=== PATIENT | male | born 1985 | race Caucasian/White ===

== ENCOUNTER → 2017-06-16 | Outpatient (CLI) | payer OTHER ==
--- NOTE | 2017-06-16 12:44 | XR ---
Lumbar spine HISTORY: Sciatica 3 views of the lumbar spine correlated to prior exam 10/15/2014, MRI 12/18/2014 Lumbar vertebral bodies show stable height, alignment, and bone mineralization. Disc spaces are uncha nged. IMPRESSION: Stable exam, mild degenerative disc disease
== END | disposition home or self-care (01) ==
LOC: RADXRMAIN 10:09
PROVIDERS: ATTEND Family Medicine
DX: M51.36 Other intervertebral disc degeneration, lumbar region (principal)
CPT/HCPCS: 72100

== ENCOUNTER 2018-12-20 22:18 | Emergency (ER) | payer OTHER ==
--- NOTE | 2018-12-20 22:48 | ED ---
Headache HPI - General Chief Complaint: Headache Stated Complaint: Headache Time Seen by Provider: 12/20/18 22:24 Source: patient, RN notes reviewed Mode of arrival: ambulatory Limitations: no limitations - History of Present Illness Initial Comments: 33-year-old male presents emergency Department chief complaint of headache. Patient had some intermittent headaches though he states he suffered with his for several years. Patient states that he was diagnosed with care malformation but states he had no surgery any procedures other than injections because it's very mild. Patient states that he had some ringing in his left ear and a headache which concerned him. Patient states she days ago he had blurred vision but it was temporary and states he is always had issues with this 71 had an injury to his left eye. Patient has a focal weakness no current URI symptoms no fever no chills no neck pain or neck stiffness. Patient states she says pres sure in the back of his head which is chronic. - Related Data Home Medications Medication Instructions Recorded Confirmed No Known Home Medications 12/20/18 12/20/18 Allergies Allergy/AdvReac Type Severity Reaction Status Date / Time No Known Allergies Allergy Verified 12/20/18 23:11 Review of Systems ROS Statement: Those systems with pertinent positive or pertinent negative responses have been documented in the HPI. ROS Other: All systems not noted in ROS Statement are negative. 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 Absent: scleral icterus, conjunctival injection, periorbital swelling ENT exam: Present: normal exam, normal oropharynx, mucous membranes moist, TM's normal bilaterally, normal external ear exam Neck exam: Present: normal inspection, full ROM. Absent: tenderness, meningismus, lymphadenopathy Respiratory exam: Present: normal lung sounds bilaterally. Absent: respiratory distress, wheezes, rales, rhonchi, stridor Cardiovascular Exam: Present: regular rate, normal rhythm, normal heart sounds. Absent: systolic murmur, diastolic murmur, rubs, gallop, clicks GI/Abdominal exam: Present: soft, normal bowel sounds. Absent: distended, tenderness, guarding, rebound, rigid Neurological exam: Present: alert, oriented X3, CN II-XII intact, reflexes normal, other (Finger to nose intact bilaterally without overshooting). Absent: motor sensory deficit Skin exam: Present: warm, dry, intact, normal color. Absent: rash Course Vital Signs 12/20/18 22:19 Temperature 98.4 F Pulse Rate 95 Respiratory 18 Rate Blood Pressure 131/83 O2 Sat by Pulse 100 Oximetry Medical Decision Making - Medical Decision Making 33-year-old male presented for intermittent headache and other vague symptoms. Patient is currently symptom-free. Patient was just concerned with his history care malformation. CT was obtained which shows evidence of colliod cyst in the third ventricle. Patient is neurologically intact and will follow-up with PCP to referred to a neurosurgeon. Return parameters were discussed. Disposition Clinical Impression: Intermittent headache, Colloid cyst of third ventricle Disposition: HOME SELF-CARE Condition: Stable Instructions (If sedation given, give patient instructions): Acute Headache (ED) Additional Instructions: Please return to the Emergency Department if symptoms worsen or any other concerns. Is patient prescribed a controlled substance at d/c from ED?: No Referrals: Ronni Parikh MD [Primary Care Provider] - 1-2 days
--- NOTE | 2018-12-20 23:28 | CT ---
EXAM: CT Head Without Intravenous Contrast CLINICAL HISTORY: RT ear pain, headache, blurred vision ITS.REASON CT Reason: pain TECHNIQUE: Axial computed tomography images of the head/brain without intravenous contrast. CTDI is 49.1 mGy and DLP is 1121.4 mGy-cm. This CT exam was performed using one or more of the following dose reduction techniques: automated exposure control, adjustment of the mA and/or kV according to patient size, and/or use of iterative reconstruction technique. COMPARISON: No relevant prior studies available. FINDINGS: Brain: A 7 mm hyperdense lesion in the region of the third ventricle, suggestive of colloid cyst. No midline shift. No acute cortical infarct. There is downward extension of the cerebellar tonsils measuring approximately 5-6 mm. Ventricles: Slightly larger right lateral ventricle compared to left. Bones/joints: No acute fracture. Soft tissues: Unremarkable. Sinuses: Minimal sinus disease. Mastoid air cells: Unremarkable as visualized. IMPRESSION: 1. A 7 mm hyperdense lesion in the region of the third ventricle, suggestive of colloid cyst. 2. Cerebellar tonsillar ectopia.
[2018-12-20 23:52] VITALS: BP 109/76; PULSE 72; RESP 19; TEMP 97.7
== END 2018-12-20 23:50 | disposition home or self-care (01) ==
LOC: EC 22:18
DX: G93.0 Cerebral cysts (principal); R51 Headache; H53.8 Other visual disturbances; R53.1 Weakness; Q07.00 Arnold-Chiari syndrome without spina bifida or hydrocephalus; F17.200 Nicotine dependence, unspecified, uncomplicated
CPT/HCPCS: 70450; 99284

== ENCOUNTER 2019-10-03 18:11 | Emergency (ER) | payer OTHER ==
[2019-10-03 18:56] VITALS: TEMP 97.4
[2019-10-03] MEDS ORDERED: SODIUM CHLORIDE 0.9% 1,000 ML IV STA (19:31)
[2019-10-03] MEDS ORDERED: SODIUM CHLORIDE 0.9% 500 ML 500 ML IV STA (19:31)
[2019-10-03] MEDS ORDERED: HYDROmorphone 0.5 MG/0.5 ML SYRINGE IVP STA (19:31)
[2019-10-03] MEDS ORDERED: ONDANSETRON 4 MG/2 ML VIAL IVP STA (19:31)
[2019-10-03] MEDS ORDERED: KETOROLAC 30 MG/ML 1 ML VIAL IVP STA (19:31)
[2019-10-03 19:48] LABS: Basophils # (A) 0.1 k/uL (0-0.2); Basophils % (A) 1 %; Eosinophils # (A) 0.2 k/uL (0-0.7); Eosinophils % (A) 1 %; HCT 42.7 % (39.0-53.0); HGB 14.1 gm/dL (13.0-17.5); Lymphocytes # (A) 1.2 k/uL (1.0-4.8); Lymphocytes % (A) 6 %; MCH 30.8 pg (25.0-35.0); MCV 93.3 fL (80.0-100.0); Mean Platelet Volume 7.7; Monocytes # (A) 0.6 k/uL (0-1.0); Monocytes % (A) 3 %; Neutrophils # (A) 16.7 k/uL (1.3-7.7); Neutrophils % (A) 88 %; Platelet Count 268 k/uL (150-450); RBC 4.57 m/uL (4.30-5.90); RDW 12.9 % (11.5-15.5)
[2019-10-03 20:00] LABS: ALT 26 U/L (4-49); AST 30 U/L (17-59); African American GFR (CKD) >90 (>60 ml/min/1.73 sqM); Albumin 4.9 g/dL (3.5-5.0); Alkaline Phosphatase 71 U/L (38-126); Amylase 78 U/L (30-110); Anion Gap 11 mmol/L; Blood Urea Nitrogen 17 mg/dL (9-20); Calcium 9.9 mg/dL (8.4-10.2); Carbon Dioxide 21 mmol/L (22-30); Chloride 107 mmol/L (98-107); Glucose 124 mg/dL (74-99); Non-African American GFR(CKD) >90 (>60 ml/min/1.73 sqM); Potassium 4.7 mmol/L (3.5-5.1); Sodium 139 mmol/L (137-145); Total Bilirubin 0.6 mg/dL (0.2-1.3); Total Protein 7.8 g/dL (6.3-8.2)
--- NOTE | 2019-10-03 20:37 | CT ---
EXAMINATION TYPE: CT abdomen pelvis wo con DATE OF EXAM: 10/03/2019 COMPARISON: None HISTORY: right flank and RLQ pain CT DLP: 355.1 mGycm Automated exposure control for dose reduction was used. Multiple axial sections were obtained from the diaphragm to the floor the pelvis with no contrast. Lung bases are clear. There is no pleural effusion. Heart appears normal. Liver appears normal. Bile ducts are not dilated. Stomach appears normal. There is no pancreatic mass . Gallbladder appears normal. There are numerous calcified splenic granulomata. There is no adrenal mass. Kidneys have normal size. There is mild right-sided hydronephrosis. There i s right-sided hydroureter. There is 3 mm calculus at the right ureterovesical junction. Bladder distends smoothly. There is no inguinal hernia. There is no free fluid in the pelvis. There is no mesenteric edema. There is no ascites or free air. There is no evidence of a bowel obstru ction. Appendix appears normal and is posterior. Lumbar vertebra have normal spacing and alignment. Bony pelvis is intact. IMPRESSION: Small obstructing calculus at the right ureterovesical junction with right-sided hydronephrosis and h ydroureter. No other calculus seen.
[2019-10-03] MEDS ORDERED: ONDANSETRON 4 MG ODT STARTER PACK 2 TAB BTL PO STA (20:43)
[2019-10-03] MEDS ORDERED: ACET/COD 300 MG/30 MG STARTER PACK 6 TAB BTL PO STA (20:43)
[2019-10-03] MEDS ORDERED: TAMSULOSIN 0.4 MG CAP.ER.24H PO STA (20:43)
[2019-10-03] MEDS ORDERED: IBUPROFEN 600 MG STARTER PACK 4 TAB BTL PO STA (20:43)
--- NOTE | 2019-10-03 20:48 | ED ---
Abdominal Pain HPI - General Chief Complaint: Abdominal Pain Stated Complaint: rt sided abd pain Time Seen by Provider: 10/03/19 19:03 Source: patient Mode of arrival: ambulatory Limitations: no limitations - History of Present Illness Initial Comments: 34-year-old male patient presents to the emergency department today for evaluation of right-sided abdominal pain radiating into the right flank. Patient states this started around 12:00 this afternoon. States the pain started suddenly. States he has had several episodes of vomiting since symptom onset. Denies any difficulty with urination, no urinary retention, dysuria, or hematuria. Denies fever or chills. Denies any hematochezia, melena, hematemesis. States he did have a bowel movement earlier today which was normal for him. Denies history of similar pain. Denies any history of abdominal surgery. Patient denies any recent rash, shortness breath, chest pain, numbness, tingling, dizziness, weakness, headache, visual changes, or any other complaints. - Related Data Previous Rx's Medication Instructions Recorded Ibuprofen [Motrin] 600 mg PO Q8HR PRN #30 tab 10/03/19 Ondansetron [Zofran ODT] 4 mg PO Q8HR PRN #10 tab 10/03/19 Tamsulosin HCl [Flomax] 0.4 mg PO DAILY #7 cap 10/03/19 Allergies Allergy/AdvReac Type Severity Reaction Status Date / Time No Known Allergies Allergy Verified 10/03/19 18:56 Review of Systems ROS Statement: Those systems with pertinent positive or pertinent negative responses have been documented in the HPI. ROS Other: All systems not noted in ROS Statement are negative. 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 Vital signs upon presentation are temperature 97.4F, pulse 79, respirations 20, blood pressure 125/84, pulse ox 99% on room air.) Eye exam: Present: normal appearance, PERRL, EOMI. Absent: scleral icterus, conjunctival injection, periorbital swelling ENT exam: Present: normal exam, normal oropharynx, mucous membranes moist Respiratory exam: Present: normal lung sounds bilaterally. Absent: respiratory distress, wheezes, rales, rhonchi, stridor Cardiovascular Exam: Present: regular rate, normal rhythm, normal heart sounds. Absent: systolic murmur, diastolic murmur, rubs, gallop, clicks GI/Abdominal exam: Present: soft, tenderness (Right sided, mild), normal bowel sounds. Absent: distended, guarding, rebound, rigid Back exam: Present: normal inspection, CVA tenderness (R). Absent: CVA tend erness (L) Neurological exam: Present: alert, oriented X3, CN II-XII intact Psychiatric exam: Present: normal affect, normal mood Skin exam: Present: warm, dry, intact, normal color. Absent: rash Course Vital Signs 10/03/19 10/03/19 18:54 21:47 Temperature 97.4 F L Pulse Rate 79 61 Respiratory 20 18 Rate Blood Pressure 125/84 123/90 O2 Sat by Pulse 99 98 Oximetry Medical Decision Making - Medical Decision Making 34-year-old male patient presented to the emergency department today for evaluation of right-sided abdominal pain and flank pain. Physical examination did reveal right CVA tenderness, mild right-sided abdominal tenderness. Labs reviewed and did reveal mildly elevated white blood cell count, there is presence of blood in the urine. CT of the abdomen and pelvis without contrast was obtained and showed evidence for right-sided hydronephrosis with hydroureter and a 3 mm obstructing stone at the right UVJ. I did discuss findings and results with the patient. Symptoms are consistent with kidney stone. He'll be started on Flomax. Given medication for pain management and nausea management. He is instructed to follow-up with urologist for further evaluation if necessary. Instructed to follow-up with his primary care physician for recheck in 1-2 days. Return parameters were discussed in detail. He verbalizes understanding and agrees with this plan. - Lab Data Result diagrams: 10/03/19 19:36 10/03/19 19:36 Lab Results 10/03/19 10/03/19 10/03/19 Range/Units 19:36 19:36 21:03 WBC 19.0 H (3.8-10.6) k/uL RBC 4.57 (4.30-5.90) m/uL Hgb 14.1 (13.0-17.5) gm/dL Hct 42.7 (39.0-53.0) % MCV 93.3 (80.0-100.0) fL MCH 30.8 (25.0-35.0) pg MCHC 33.0 (31.0-37.0) g/dL RDW 12.9 (11.5-15.5) % Plt Count 268 (150-450) k/uL Neutrophils % 88 % Lymphocytes % 6 % Monocytes % 3 % Eosinophils % 1 % Basophils % 1 % Neutrophils # 16.7 H (1.3-7.7) k/uL Lymphocytes # 1.2 (1.0-4.8) k/uL Monocytes # 0.6 (0-1.0) k/uL Eosinophils # 0.2 (0-0.7) k/uL Basophils # 0.1 (0-0.2) k/uL Sodium 139 (137-145) mmol/L Potassium 4.7 (3.5-5.1) mmol/L Chloride 107 (98-107) mmol/L Carbon Dioxide 21 L (22-30) mmol/L Anion Gap 11 mmol/L BUN 17 (9-20) mg/dL Creatinine 0.91 (0.66-1.25) mg/dL Est GFR (CKD-EPI)AfAm >90 (>60 ml/min/1.73 sqM) Est GFR (CKD-EPI)NonAf >90 (>60 ml/min/1.73 sqM) Glucose 124 H (74-99) mg/dL Calcium 9.9 (8.4-10.2) mg/dL Total Bilirubin 0.6 (0.2-1.3) mg/dL AST 30 (17-59) U/L ALT 26 (4-49) U/L Alkaline Phosphatase 71 (38-126) U/L Total Protein 7.8 (6.3-8.2) g/dL Albumin 4.9 (3.5-5.0) g/dL Amylase 78 (30-110) U/L Lipase 77 (23-300) U/L Urine Color Yellow Urine Appearance Clear (Clear) Urine pH 7.0 (5.0-8.0) Ur Specific [place] 1.023 (1.001-1.035) Urine Protein 1+ H (Negative) Urine Glucose (UA) Negative (Negative) Urine Ketones 3+ H (Negative) Urine Blood Small H (Negative) Urine Nitrite Negative (Negative) Urine Bilirubin Negative (Negative) Urine Urobilinogen 2.0 (<2.0) mg/dL Ur Leukocyte Esterase Small H (Negative) Urine RBC 91 H (0-5) /hpf Urine WBC 15 H (0-5) /hpf Ur Squamous Epith Cells <1 (0-4) /hpf Urine Mucus Many H (None) /hpf - Radiology Data Radiology results: report reviewed, image reviewed CT abdomen and pelvis without contrast was obtained. Report was reviewed in its entirety. Impression by Dr. Veloz shows small truck and kyphosis of the right uterovesical junction with right-sided hydronephrosis and hydroureter. No other calculus seen. Disposition Clinical Impression: Kidney stone on right side Disposition: HOME SELF-CARE Condition: Good Instructions (If sedation given, give patient instructions): Kidney Stones (ED) Additional Instructions: Increase fluids. Take medication as directed for symptom relief. Zofran every 6-8 hours as needed for nausea. Tylenol No. 3 every 6 hours as needed for pain, Motrin every 6 hours as needed for pain. Follow-up with the urologist for further evaluation and management. Return to the emergency department immediately for any new, worsening, or concerning symptoms. Prescriptions: Tamsulosin HCl [Flomax] 0.4 mg PO DAILY #7 cap Ibuprofen [Motrin] 600 mg PO Q8HR PRN #30 tab PRN Reason: Pain Ondansetron [Zofran ODT] 4 mg PO Q8HR PRN #10 tab PRN Reason: Nausea Is patient prescribed a controlled substance at d/c from ED?: No Referrals: Ronni Parikh MD [Primary Care Provider] - 1-2 days Marcus Wells MD [STAFF PHYSICIAN] - 1-2 days Time of Disposition: 21:30
[2019-10-03 21:19] LABS: Appearance,Urine Clear (Clear); Bilirubin,Urine Negative (Negative); Blood,Urine Small (Negative); Color,Urine Yellow; Glucose,Urine (UA) Negative (Negative); Ketones,Urine 3+ (Negative); Leukocyte Esterase,Urine Small (Negative); Mucus,Urine Many /hpf; Nitrite,Urine Negative (Negative); Protein,Urine 1+ (Negative); RBC,Urine 91 /hpf (0-5); Specific Gravity,Urine 1.023 (1.001-1.035); Squamous Epithelial Cell,Urine <1 /hpf (0-4); WBC,Urine 15 /hpf (0-5)
[2019-10-03 21:48] VITALS: BP 123/90; PULSE 61; RESP 18
== END 2019-10-03 21:48 | disposition home or self-care (01) ==
LOC: EC 18:11
DX: N13.2 Hydronephrosis with renal and ureteral calculous obstruction (principal); F17.200 Nicotine dependence, unspecified, uncomplicated
CPT/HCPCS: 36415; 80053; 82150; 83690; 85025; 81001; 87086; 74176; 99284; 96374; 96375 ×2; 96361 ×2; J2405; J1885; S0119; J1170

== ENCOUNTER 2021-01-26 12:30 | Emergency (ER) | payer BC, OTHER ==
[2021-01-26 12:38] VITALS: BP 103/64; PULSE 95; RESP 18; TEMP 97.8
--- NOTE | 2021-01-26 13:34 | ED ---
General Adult HPI - General Chief complaint: Back Pain/Injury Stated complaint: back pain Time Seen by Provider: 01/26/21 13:17 Source: patient, RN notes reviewed, old records reviewed Mode of arrival: ambulatory Limitations: no limitations - History of Present Illness Initial comments: 35-year-old male with chronic back pain presenting with acute worsening of his back pain. He states that over the past week he's been quite active, doing sports and ninja warrior moves. He also reports that he drove from [place] which was an [address] and he believes this may have worsened his back pain. He denies a specific injury or trauma. No fever. No urinary symptoms, no bowel or bladder incontinence. He does have some shooting pain into the right lower leg on the outside of the leg. Patient denies saddle anesthesia. - Related Data Previous Rx's Medication Instructions Recorded Ibuprofen [Motrin] 600 mg PO Q8HR PRN #30 tab 10/03/19 Ondansetron [Zofran ODT] 4 mg PO Q8HR PRN #10 tab 10/03/19 Tamsulosin HCl [Flomax] 0.4 mg PO DAILY #7 cap 10/03/19 Allergies Allergy/AdvReac Type Severity Reaction Status Date / Time No Known Allergies Allergy Verified 01/26/21 12:34 Review of Systems ROS Statement: Those systems with pertinent positive or pertinent negative responses have been documented in the HPI. ROS Other: All systems not noted in ROS Statement are negative. Past Medical History Past Medical History: No Reported History Additional Past Medical History / Comment(s): chiari malformation History of Any Multi-Drug Resistant Organisms: None Reported Past Surgical History: No Surgical Hx Reported Past Psychological History: No Psychological Hx Reported Smoking Status: Former smoker Past Alcohol Use History: None Reported Past Drug Use History: Marijuana General Exam Limitations: no limitations General appearance: alert, in no apparent distress Head exam: Present: atraumatic, normocephalic Eye exam: Present: normal appearance, PERRL ENT exam: Present: normal exam Neck exam: Present: normal inspection. Absent: tenderness, meningismus Respiratory exam: Present: normal lung sounds bilaterally. Absent: respiratory distress, wheezes Cardiovascular Exam: Present: regular rate, normal rhythm GI/Abdominal exam: Present: soft. Absent: distended, tenderness, guarding, rebound Extremities exam: Present: normal inspection, normal capillary refill. Absent: pedal edema, calf tenderness Back exam: Present: normal inspection, tenderness, paraspinal tenderness (Patient has some right sided paraspinal lumbar and sacral muscle spasm and no malalignment, no bony tenderness. No external skin changes.). Absent: vertebral tenderness Neurological exam: Present: alert, oriented X3, CN II-XII intact, other (5 out of 5 strength in both right and left leg.). Absent: motor sensory deficit Psychiatric exam: Present: normal affect, normal mood Skin exam: Present: warm, dry, intact. Absent: cyanosis, diaphoretic Course Vital Signs 01/26/21 12:35 Temperature 97.8 F Pulse Rate 95 Respiratory 18 Rate Blood Pressure 103/64 O2 Sat by Pulse 97 Oximetry Medical Decision Making - Medical Decision Making 35-year-old male with acute on chronic back pain. Patient is already taking Motrin, Flexeril and tramadol. He will continue these medications. He is given exercise instructions, as well as return parameters. He will follow with both his primary care physician. Disposition Clinical Impression: Strain of lumbar region, Sciatica Disposition: HOME SELF-CARE Condition: Good Instructions (If sedation given, give patient instructions): Acute Low Back Pain (ED) Is patient prescribed a controlled substance at d/c from ED?: No Referrals: Ronni Parikh MD [Primary Care Provider] - 1-2 days Time of Disposition: 13:34
== END 2021-01-26 13:38 | disposition home or self-care (01) ==
LOC: EC 12:30
DX: S39.012A Strain of muscle, fascia and tendon of lower back, initial encounter (principal); M54.40 Lumbago with sciatica, unspecified side; Z87.891 Personal history of nicotine dependence; X58.XXXA Exposure to other specified factors, initial encounter
CPT/HCPCS: 99282

== ENCOUNTER → 2021-05-13 | Outpatient (CLI) | payer BC, OTHER ==
[2021-05-13 22:42] LABS: Basophils # (A) 0.14 X 10*3/uL (0.00-0.10); Basophils % (A) 2.1 %; Eosinophils % (A) 4.4 %; HCT 40.1 % (39.6-50.0); HGB 13.6 g/dL (13.0-17.0); Lymphocytes # (A) 2.33 X 10*3/uL (0.90-5.00); Lymphocytes % (A) 34.2 %; MCH 31.9 pg (27.0-32.0); MCHC 33.9 g/dL (32.0-37.0); MCV 94.1 fL (80.0-97.0); Monocytes % (A) 8.8 %; Neutrophils # (A) 3.43 X 10*3/uL (1.80-7.70); Neutrophils % (A) 50.4 %; Platelet Count 276 X 10*3/uL (140-440); RBC 4.26 X 10*6/uL (4.40-5.60); RDW 12.9 % (11.5-14.5); WBC 6.81 X 10*3/uL (4.50-10.00)
[2021-05-14 15:50] LABS: % Iron Saturation 23.13 (15.00-50.00); African American GFR (CKD) 128.7 (60.0-200.0); Albumin 4.7 g/dL (3.80-4.90); Albumin/Globulin Ratio 2.04 (1.60-3.17); Anion Gap 12.1 mmol/L (4.00-12.00); BUN/Creat Ratio 13.33 Ratio (12.00-20.00); Calcium 9.6 mg/dL (8.7-10.3); Carbon Dioxide 22.9 mmol/L (21.6-31.8); Globulin 2.3 g/dL (1.6-3.3); Potassium 4.1 mmol/L (3.5-5.5); Total Bilirubin 0.3 mg/dL (0.2-1.2)
== END | disposition home or self-care (01) ==
LOC: LABWHC1 16:17
PROVIDERS: ATTEND Nurse Practitioner Acute Care
DX: Z51.81 Encounter for therapeutic drug level monitoring (principal); E53.9 Vitamin B deficiency, unspecified; E55.9 Vitamin D deficiency, unspecified
CPT/HCPCS: 36415; 80053; 82306; 82607; 83540; 83550; 84439; 84443; 84481; 85025

== ENCOUNTER → 2021-05-17 | Outpatient (CLI) | payer BC, OTHER | END | disposition home or self-care (01) | LOC: LABMAIN 13:45 | PROVIDERS: ATTEND Nurse Practitioner Acute Care | DX: E53.9 Vitamin B deficiency, unspecified (principal); E55.9 Vitamin D deficiency, unspecified; Z51.81 Encounter for therapeutic drug level monitoring | CPT/HCPCS: 36415; 84207 ==

== ENCOUNTER 2021-07-06 09:15 | Emergency (ER) | payer BC, OTHER ==
[2021-07-06] MEDS ORDERED: IBUPROFEN 600 MG TAB PO STA (09:55)
[2021-07-06] MEDS ORDERED: ALBUTEROL HFA INHALER INHALATION STA (09:55)
[2021-07-06] MEDS ORDERED: ACETAMINOPHEN TAB 500 MG TAB PO STA (09:55)
[2021-07-06] MEDS ORDERED: SODIUM CHLORIDE 0.9% 50 ML IVPB ONE (10:00)
--- NOTE | 2021-07-06 10:05 | ED ---
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 Patient is covid positive. He started to have symptoms 3 days ago and then yesterday tested positive. Patient is not having any shortness of breath. He is congested and has a cough. States he has body aches. States he needs the antibodies. He was not vaccinated.Patient has no other complaints at this time including shortness of breath, chest pain, abdominal pain, nausea or vomiting, headache, or visual changes. - Related Data Previous Rx's Medication Instructions Recorded Ibuprofen [Motrin] 600 mg PO Q8HR PRN #30 tab 10/03/19 Ondansetron [Zofran ODT] 4 mg PO Q8HR PRN #10 tab 10/03/19 Tamsulosin HCl [Flomax] 0.4 mg PO DAILY #7 cap 10/03/19 Albuterol Inhaler [Ventolin Hfa 2 puff INHALATION RT-QID PRN #8 gm 07/06/21 Inhaler] Benzonatate [Tessalon Perles] 200 mg PO Q8H PRN #15 capsule 07/06/21 guaiFENesin [Mucinex] 600 mg PO Q12HR PRN #20 tab 07/06/21 Allergies Allergy/AdvReac Type Severity Reaction Status Date / Time No Known Allergies Allergy Verified 07/06/21 09:18 Review of Systems ROS Statement: Those systems with pertinent positive or pertinent negative responses have been documented in the HPI. ROS Other: All systems not noted in ROS Statement are negative. Past Medical History Past Medical History: No Reported History Additional Past Medical History / Comment(s): chiari malformation, cyst in brain ventricle History of Any Multi-Drug Resistant Organisms: None Reported Past Surgical History: No Surgical Hx Reported Past Psychological History: No Psychological Hx Reported Smoking Status: Former smoker Past Alcohol Use History: None Reported Past Drug Use History: Marijuana General Exam Limitations: no limitations General appearance: alert, in no apparent distress Head exam: Present: atraumatic Eye exam: Present: normal appearance, PERRL, EOMI. Absent: scleral icterus, conjunctival injection ENT exam: Present: normal exam, mucous membranes moist Neck exam: Present: normal inspection, full ROM. Absent: tenderness Respiratory exam: Present: normal lung sounds bilaterally. Absent: respiratory distress, wheezes Cardiovascular Exam: Present: regular rate, normal rhythm, normal heart sounds GI/Abdominal exam: Present: soft, normal bowel sounds. Absent: distended, tenderness Neurological exam: Present: alert Course Vital Signs 07/06/21 09:16 Temperature 97.9 F Pulse Rate 106 H Respiratory 18 Rate Blood Pressure 132/82 O2 Sat by Pulse 97 Oximetry Medical Decision Making - Medical Decision Making Vitals are stable. Patient is well-appearing. No respiratory distress. We will treat patient's body aches with Motrin and Tylenol. He is requesting trying an inhaler as this has helped him in the past with illnesses. Patient will be given antibodies and will be discharged home. Strict return parameters discussed. Disposition Clinical Impression: COVID Disposition: HOME SELF-CARE Condition: Good Instructions (If sedation given, give patient instructions): Coronavirus Disease 2019 (COVID-19) Additional Instructions: Please take medications as directed. Return to the emergency room for worsening symptoms such as worsening shortness of breath. Follow up with primary care provider. Prescriptions: guaiFENesin [Mucinex] 600 mg PO Q12HR PRN #20 tab PRN Reason: Congestion Benzonatate [Tessalon Perles] 200 mg PO Q8H PRN #15 capsule PRN Reason: Cough Albuterol Inhaler [Ventolin Hfa Inhaler] 2 puff INHALATION RT-QID PRN #8 gm PRN Reason: Shortness Of Breath Is patient prescribed a controlled substance at d/c from ED?: No Referrals: Ronni Parikh MD [Primary Care Provider] - 1-2 days Time of Disposition: 10:04
[2021-07-06] MEDS ORDERED: CASIRIVIMAB (REGN10933) (EUA) 600 MG, IMDEVIMAB (REGN10987) (EUA) 600 MG in SODIUM CHLO... IVPB ONE (10:15)
[2021-07-06 11:03] VITALS: TEMP 97.9
[2021-07-06 11:52] VITALS: BP 118/63; PULSE 79; RESP 79
== END 2021-07-06 12:05 ==
LOC: EC 09:15 → PROCWHC3 09:15 → EDSTATUS 10:56 → PROCWHC3 12:05 → EDSTATUS 14:01
DX: U07.1 COVID-19 (principal); F12.90 Cannabis use, unspecified, uncomplicated; Z87.891 Personal history of nicotine dependence
CPT/HCPCS: 99283 ×2; 96365; 96361 ×2; 94640; M0243; Q0243